=== PATIENT | male | born 1960 | race Caucasian/White ===

== ENCOUNTER 2017-10-24 07:33 | Day surgery (SDC) | payer OTHER ==
[2017-10-20 12:27] VITALS: BMI 34.4
[~2017-10-24 07:33] MED LIST: LACTATED RINGERS 1,000 ML IV SCH
[2017-10-24] MEDS ORDERED: LIDOCAINE 1% 20 ML VIAL (10MG/ML) FOR IV START INTRADERMA ONE (08:05)
[2017-10-24 08:13] LABS: Glucose,Whole Blood 100 mg/dL (75-99)
[2017-10-24 08:17] VITALS: RESP 16; TEMP 97.7
[2017-10-24] MEDS ORDERED: LIDOCAINE 1% INJ 10MG/ML (20 ML MDV) ONE (09:11)
[2017-10-24] MEDS ORDERED: PROPOFOL 10 MG/ML 20 ML VIAL IV ONE (09:11)
--- NOTE | 2017-10-24 09:43 | P.PCN ---
Date of Procedure: 10/24/17 Procedure(s) Performed: Procedure: Total colonoscopy. Preoperative diagnosis: Screening for neoplasia. Postoperative diagnosis: Less than ideal preparation, otherwise, exam within normal limits. Preparation: HalfLytely prep. Sedation: Was provided by anesthesia. Brief clinical history: The patient is a 57-year-old male who is scheduled for this evaluation for screening for neoplasia. He had a prior exam at age 50. He has no abdominal complaints bleeding or anemia. Procedure: With the patient on his left lateral decubitus position and after informed consent and adequate sedation, the perianal area was inspected and it did not show any fissures or fistulas. There were no masses felt on digital rectal examination. The Olympus CFQ 160L video colonoscope was then inserted in the rectum in the usual fashion and advanced to the cecum. The preparation was less than ideal and I spent some time cleansing and suctioning fecal debris. The mucosa appeared healthy. No obvious polyps or diverticular disease was seen. I retroflexed the endoscope in the rectum before the endoscope was withdrawn. The patient tolerated the procedure well. Plan: The patient was reassured. In light of his preparation, I am recommending repeat exam in 5 years.
[2017-10-24 10:08] VITALS: BP 119/79; PULSE 63
== END 2017-10-24 10:20 | disposition home or self-care (01) ==
LOC: ORWHC2ENDO 07:33
DX: Z12.11 Encounter for screening for malignant neoplasm of colon (principal); I10 Essential (primary) hypertension; E78.5 Hyperlipidemia, unspecified; E11.9 Type 2 diabetes mellitus without complications; Z79.84 Long term (current) use of oral hypoglycemic drugs; Z79.899 Other long term (current) drug therapy
CPT/HCPCS: J2001; J2704; G0121